=== PATIENT | female | born 1995 | race Two or more races ===

== ENCOUNTER 2023-11-24 02:39 | Emergency (ER) | payer OTHER, MEDICAID ==
[~2023-11-24] VITALS: Ht 160 cm; Wt 109.0 kg
[2023-11-24] MEDS ORDERED: PANT40TA2 PO (03:24)
[2023-11-24 03:30] VITALS: BP 138/89; PULSE 63; RESP 13; TEMP 97.9; O2SAT 97
[2023-11-24] MEDS ORDERED: DONNATAL 5ml ORAL Elix (BELLADONNA ALK-PHENOBARB) PO ONE (03:30)
[2023-11-24] MEDS ORDERED: MAALOX PLUS or MAALOX 30 ML PO ONE (03:30)
[2023-11-24] MEDS ORDERED: LIDOCAINE VISCOUS 2% 15ML UD PO ONE (03:30)
== END 2023-11-24 04:01 | disposition home or self-care (01) ==
LOC: ER 02:39
DX: K21.9 Gastro-esophageal reflux disease without esophagitis (principal); K29.00 Acute gastritis without bleeding

== ENCOUNTER 2023-11-27 08:55 | Emergency (ER) | payer OTHER, MEDICAID ==
[~2023-11-27] VITALS: Ht 160 cm; Wt 106.0 kg
[~2023-11-27 08:55] MED LIST: PANT40TA2 PO
[2023-11-27 09:27] LABS: Basophils # (auto) 0.1 10 ^3/uL (0-0.2); Basophils % (auto) 0.4 % (0.0-2.0); Eosinophils # (auto) 0 10 ^3/uL (0-0.8); Eosinophils % (auto) 0.2 % (0.0-7.0); Hemoglobin 14.4 g/dL (12.2-16.2); Lymphocytes % (auto) 15.3 % (10.0-50.0); Mean Corpuscular Hemoglobin 29.6 pg (28.0-32.0); Mean Corpuscular Hgb Conc. 33.6 g/dL (32.0-36.0); Mean Corpuscular Volume 88.2 fL (80.0-100.0); Monocytes # (auto) 0.4 10 ^3/uL (0-1.3); Monocytes % (auto) 3.1 % (0.0-12.0); Neutrophils # (auto) 10.5 10 ^3/uL (1.6-8.6); Red Blood Cells 4.88 10^6/uL (4.0-5.20); Red Cell Distribution Width 14.5 % (11.8-14.3); White Blood Cell 12.9 10^3/uL (4.4-10.8)
[2023-11-27 09:38] VITALS: BP 182/95; RESP 18; TEMP 99.1; O2SAT 100
[2023-11-27 09:39] LABS: INR 0.98 (0.9-1.15); Partial Thromboplastin Time 34.1 SEC (24.5-34.5); Prothrombin Time 10.3 sec (9.3-11.8)
[2023-11-27 09:42] LABS: Alanine Aminotransferase 24 U/L (7-40); Albumin 5.1 g/dL (3.2-4.8); Alkaline Phosphatase 110 U/L (46-116); Anion Gap 9 (5-15); Aspartate Aminotransferase 12 U/L (13-40); BUN/Creatinine Ratio 10.6 (10.0-20.0); Bilirubin, Total 0.7 mg/dL (0.2-1.0); Blood Urea Nitrogen 7 mg/dL (9-23); Calcium 10.1 mg/dL (8.5-10.1); Carbon Dioxide 25 mmol/L (20-30); Chloride 105 mmol/L (98-107); Glucose 108 mg/dL (74-106); Potassium 4.2 mmol/L (3.5-5.1); Sodium 139 mmol/L (136-145); Total Protein 7.7 g/dL (5.7-8.2)
[2023-11-27 09:53] VITALS: PULSE 56
[2023-11-27] MEDS ORDERED: KETOROLAC TROMETH 60MG/2ML VIAL IM ONE (10:45)
[2023-11-27] MEDS ORDERED: IBUP-1456 PO (11:04)
[2023-11-27] MEDS ORDERED: ZOFR4T PO (11:04)
== END 2023-11-27 11:52 | disposition home or self-care (01) ==
LOC: ER 08:55
DX: K80.20 Calculus of gallbladder without cholecystitis without obstruction (principal); K76.0 Fatty (change of) liver, not elsewhere classified; Z79.899 Other long term (current) drug therapy
CPT/HCPCS: 36415; 76705; 80053; 83690; 83735; 83880; 84484; 85025; 85610; 85730; 93005; 96372; 99285; J1885

== ENCOUNTER 2024-03-23 14:42 | Inpatient (IN) | payer MEDICAID, OTHER ==
[~2024-03-23] VITALS: Ht 160 cm; Wt 117.6 kg
[~2024-03-23 14:42] MED LIST changes: +IBUP-1456 PO; +ZOFR4T PO
[2024-03-23 15:31] LABS: Urine Amorphous Crystal FEW /hpf (None Seen); Urine Bacteria MANY /hpf (None Seen); Urine Blood Negative /uL (Negative); Urine Clarity Turbid (Clear); Urine Color Dark-Yellow (Yellow); Urine Mucus FEW (None Seen); Urine Protein, UAD 1+ (Negative); Urine Specific Gravity 1.024 (1.001-1.035); Urine Urobilinogen 2 mg/dL (Negative); Urine WBC 32 /hpf (0 - 5); Urine pH 7.5 (5.0-9.0)
[2024-03-23 15:38] LABS: Basophils # (auto) 0.1 10 ^3/uL (0-0.2); Basophils % (auto) 0.7 % (0.0-2.0); Eosinophils # (auto) 0.1 10 ^3/uL (0-0.8); Eosinophils % (auto) 1.1 % (0.0-7.0); Hematocrit 42.1 % (36.0-46.0); Lymphocytes # (auto) 1.4 10 ^3/uL (0.4-5.4); Lymphocytes % (auto) 19.1 % (10.0-50.0); Mean Corpuscular Hemoglobin 29.1 pg (28.0-32.0); Mean Corpuscular Hgb Conc. 33.2 g/dL (32.0-36.0); Mean Corpuscular Volume 87.5 fL (80.0-100.0); Monocytes # (auto) 0.4 10 ^3/uL (0-1.3); Monocytes % (auto) 5.8 % (0.0-12.0); Neutrophils # (auto) 5.6 10 ^3/uL (1.6-8.6); Neutrophils % (auto) 73.3 % (37.0-80.0); Red Blood Cells 4.81 10^6/uL (4.0-5.20); Red Cell Distribution Width 14.7 % (11.8-14.3); White Blood Cell 7.6 10^3/uL (4.4-10.8)
[2024-03-23 15:50] LABS: Alanine Aminotransferase 901 U/L (7-40); Alkaline Phosphatase 300 U/L (46-116); Anion Gap 7 (5-15); Aspartate Aminotransferase 978 U/L (13-40); BUN/Creatinine Ratio 10.9 (10.0-20.0); Bilirubin, Total 4.4 mg/dL (0.2-1.0); Blood Urea Nitrogen 7 mg/dL (9-23); Calcium 9.9 mg/dL (8.5-10.1); Carbon Dioxide 29 mmol/L (20-30); Chloride 106 mmol/L (98-107); Glucose 98 mg/dL (74-106); Sodium 142 mmol/L (136-145); Total Protein 7.7 g/dL (5.7-8.2)
[2024-03-23] MEDS ORDERED: MORPHINE SULFATE INJ 2 MG/ml SYRG IV PRN (20:30)
[2024-03-23] MEDS ORDERED: ONDANSETRON HCL 4 MG/2 ML VIAL IV PRN (20:30)
[2024-03-23 20:35] VITALS: PULSE 70; RESP 13; O2SAT 97
[2024-03-23] MEDS: PIPERACILLIN-TAZOB 3.375GM 100 ML IV ONE (20:56)
[2024-03-23] MEDS: SODIUM CHLORIDE 0.9% 1,000 ML IV SCH (21:32)
[2024-03-23 21:39] LABS: INR 1.05 (0.9-1.15); Partial Thromboplastin Time 28.6 SEC (24.5-34.5); Prothrombin Time 11.1 sec (9.3-11.8)
[2024-03-23 22:29] VITALS: BP 122/62; PULSE 58; PULSE 60; RESP 18; RESP 20; TEMP 97.9; TEMP 98; O2SAT 96; O2SAT 97
[2024-03-24 01:00] VITALS: BP_SYST 124; BP_SYST 145; BP_DIAS 67; BP_DIAS 83; PULSE 64; PULSE 84; RESP 17; RESP 18; TEMP 97.9; TEMP 98.6; O2SAT 96; O2SAT 97
[2024-03-24 05:00] VITALS: BP 131/71; PULSE 75; RESP 20; TEMP 98.8; O2SAT 94
[2024-03-24] MEDS: cefTRIAXone 1GM/50ML D5W 50 ML IV ONE (05:24)
[2024-03-24 06:19] LABS: Basophils # (auto) 0.1 10 ^3/uL (0-0.2); Basophils % (auto) 0.8 % (0.0-2.0); Eosinophils # (auto) 0.1 10 ^3/uL (0-0.8); Hematocrit 39.3 % (36.0-46.0); Hemoglobin 13.2 g/dL (12.2-16.2); Lymphocytes # (auto) 1.6 10 ^3/uL (0.4-5.4); Lymphocytes % (auto) 20.7 % (10.0-50.0); Mean Corpuscular Hemoglobin 29.5 pg (28.0-32.0); Mean Corpuscular Hgb Conc. 33.7 g/dL (32.0-36.0); Mean Corpuscular Volume 87.6 fL (80.0-100.0); Monocytes # (auto) 0.5 10 ^3/uL (0-1.3); Monocytes % (auto) 5.7 % (0.0-12.0); Neutrophils # (auto) 5.7 10 ^3/uL (1.6-8.6); Neutrophils % (auto) 71.8 % (37.0-80.0); Red Blood Cells 4.48 10^6/uL (4.0-5.20); Red Cell Distribution Width 14.8 % (11.8-14.3); White Blood Cell 7.9 10^3/uL (4.4-10.8)
[2024-03-24 06:31] LABS: Alanine Aminotransferase 825 U/L (7-40); Albumin 4.4 g/dL (3.2-4.8); Alkaline Phosphatase 314 U/L (46-116); Anion Gap 10 (5-15); Aspartate Aminotransferase 541 U/L (13-40); BUN/Creatinine Ratio 15.8 (10.0-20.0); Blood Urea Nitrogen 9 mg/dL (9-23); Calcium 9.7 mg/dL (8.7-10.4); Carbon Dioxide 24 mmol/L (20-30); Chloride 109 mmol/L (98-107); Glucose 83 mg/dL (74-106); Potassium 3.7 mmol/L (3.5-5.1); Sodium 143 mmol/L (136-145)
[2024-03-24 06:32] LABS: Bilirubin, Total 4.6 mg/dL (0.2-1.0)
[2024-03-24 08:35] VITALS: BP 128/75; PULSE 65; RESP 16; TEMP 97.8; O2SAT 95
[2024-03-24] MEDS ORDERED: HYDROcodone-ACET 5/325MG TAB PO PRN (11:45)
[2024-03-24 12:34] VITALS: BP 129/66; PULSE 61; RESP 16; TEMP 98.1; O2SAT 95
[2024-03-24] MEDS: metroNIDAZOLE 500MG/100ML 100 ML IV SCH (15:03)
[2024-03-24 17:00] VITALS: BP 126/73; PULSE 67; RESP 16; TEMP 98; O2SAT 96
[2024-03-24 21:31] VITALS: BP 115/64; PULSE 88; RESP 18; TEMP 98.3; O2SAT 97
[2024-03-25] VITALS (7 sets, daily range): BP systolic 117–144; BP diastolic 58–94; PULSE 53–84; RESP 16–18; TEMP 97.6–98.6; O2SAT 95–97
[2024-03-25] MEDS: cefTRIAXone 1GM/50ML D5W 50 ML IV SCH (04:01)
[2024-03-25 06:12] LABS: Basophils # (auto) 0 10 ^3/uL (0-0.2); Basophils % (auto) 0.7 % (0.0-2.0); Eosinophils # (auto) 0.1 10 ^3/uL (0-0.8); Eosinophils % (auto) 1.8 % (0.0-7.0); Hematocrit 39.2 % (36.0-46.0); Hemoglobin 13.1 g/dL (12.2-16.2); Lymphocytes # (auto) 1.9 10 ^3/uL (0.4-5.4); Lymphocytes % (auto) 29.4 % (10.0-50.0); Mean Corpuscular Hemoglobin 29.4 pg (28.0-32.0); Mean Corpuscular Hgb Conc. 33.4 g/dL (32.0-36.0); Monocytes # (auto) 0.5 10 ^3/uL (0-1.3); Neutrophils % (auto) 61.1 % (37.0-80.0); Red Blood Cells 4.46 10^6/uL (4.0-5.20); Red Cell Distribution Width 15.2 % (11.8-14.3); White Blood Cell 6.5 10^3/uL (4.4-10.8)
[2024-03-25 06:27] LABS: INR 1.07 (0.9-1.15); Partial Thromboplastin Time 31.5 SEC (24.5-34.5); Prothrombin Time 11.3 sec (9.3-11.8)
[2024-03-25 06:39] LABS: Alanine Aminotransferase 564 U/L (7-40); Albumin 3.9 g/dL (3.2-4.8); Alkaline Phosphatase 327 U/L (46-116); Anion Gap 10 (5-15); Aspartate Aminotransferase 288 U/L (13-40); BUN/Creatinine Ratio 10.7 (10.0-20.0); Bilirubin, Total 4.2 mg/dL (0.2-1.0); Blood Urea Nitrogen 6 mg/dL (9-23); Carbon Dioxide 23 mmol/L (20-30); Chloride 107 mmol/L (98-107); Glucose 90 mg/dL (74-106); Potassium 3.8 mmol/L (3.5-5.1); Sodium 140 mmol/L (136-145); Total Protein 6.3 g/dL (5.7-8.2)
[2024-03-25] MEDS: LORATADINE 10 MG TAB PO SCH (17:45)
[2024-03-25] MEDS: diphenhdrAMINE HCL 25 MG CAP PO PRN (21:50)
[2024-03-26 01:00] VITALS: BP 134/74; PULSE 58; RESP 18; TEMP 97.9; O2SAT 98
[2024-03-26 05:00] VITALS: BP 127/71; PULSE 51; RESP 16; TEMP 98.4; O2SAT 97
[2024-03-26 06:55] LABS: Alanine Aminotransferase 533 U/L (7-40); Albumin 4.1 g/dL (3.2-4.8); Alkaline Phosphatase 382 U/L (46-116); Anion Gap 7 (5-15); Aspartate Aminotransferase 246 U/L (13-40); Bilirubin, Total 4.7 mg/dL (0.2-1.0); Calcium 9.4 mg/dL (8.5-10.1); Carbon Dioxide 23 mmol/L (20-30); Chloride 110 mmol/L (98-107); Glucose 91 mg/dL (74-106); Potassium 3.8 mmol/L (3.5-5.1); Sodium 140 mmol/L (136-145); Total Protein 6.5 g/dL (5.7-8.2)
[2024-03-26 06:56] LABS: BUN/Creatinine Ratio 9.6 (10.0-20.0); Blood Urea Nitrogen < 5 mg/dL (9-23)
[2024-03-26 07:02] LABS: Basophils # (auto) 0.1 10 ^3/uL (0-0.2); Basophils % (auto) 0.9 % (0.0-2.0); Eosinophils # (auto) 0.2 10 ^3/uL (0-0.8); Eosinophils % (auto) 2.9 % (0.0-7.0); Hematocrit 41.2 % (36.0-46.0); Hemoglobin 13.5 g/dL (12.2-16.2); Lymphocytes # (auto) 2.2 10 ^3/uL (0.4-5.4); Lymphocytes % (auto) 33.5 % (10.0-50.0); Mean Corpuscular Hemoglobin 29.4 pg (28.0-32.0); Mean Corpuscular Hgb Conc. 32.8 g/dL (32.0-36.0); Mean Corpuscular Volume 89.7 fL (80.0-100.0); Monocytes # (auto) 0.5 10 ^3/uL (0-1.3); Monocytes % (auto) 7.6 % (0.0-12.0); Neutrophils # (auto) 3.6 10 ^3/uL (1.6-8.6); Neutrophils % (auto) 55.1 % (37.0-80.0); Nucleated Red Blood Cells % 0.1 %; Red Cell Distribution Width 15.2 % (11.8-14.3); White Blood Cell 6.5 10^3/uL (4.4-10.8)
[2024-03-26 09:00] VITALS: BP 131/58; PULSE 66; RESP 18; TEMP 97.9; O2SAT 95
[2024-03-26 13:00] VITALS: BP 128/77; PULSE 78; RESP 16; TEMP 97.7; O2SAT 96
[2024-03-26 17:00] VITALS: BP 129/83; PULSE 72; RESP 18; TEMP 98.3; O2SAT 96
[2024-03-26 21:00] VITALS: BP 149/88; PULSE 67; RESP 17; TEMP 98; O2SAT 98
[2024-03-27] VITALS (7 sets, daily range): BP systolic 104–144; BP diastolic 57–84; PULSE 69–90; RESP 14–18; TEMP 97.7–98.2; O2SAT 95–99
[2024-03-27 07:10] LABS: Alanine Aminotransferase 517 U/L (7-40); Albumin 4.1 g/dL (3.2-4.8); Alkaline Phosphatase 418 U/L (46-116); Anion Gap 9 (5-15); Aspartate Aminotransferase 287 U/L (13-40); Calcium 9.5 mg/dL (8.7-10.4); Carbon Dioxide 24 mmol/L (20-30); Chloride 107 mmol/L (98-107); Glucose 83 mg/dL (74-106); Potassium 3.7 mmol/L (3.5-5.1); Sodium 140 mmol/L (136-145)
[2024-03-27 07:11] LABS: Bilirubin, Total 5.4 mg/dL (0.2-1.0); Total Protein 6.7 g/dL (5.7-8.2)
[2024-03-27 07:13] LABS: BUN/Creatinine Ratio 8.2 (10.0-20.0); Blood Urea Nitrogen < 5 mg/dL (9-23)
[2024-03-27] MEDS: metroNIDAZOLE 500 MG TAB PO SCH (14:58)
[2024-03-28] VITALS (7 sets, daily range): BP systolic 130–143; BP diastolic 75–89; PULSE 63–83; RESP 17–20; TEMP 97.8–98.5; O2SAT 95–99
[2024-03-28 06:41] LABS: Alanine Aminotransferase 522 U/L (7-40); Albumin 4.1 g/dL (3.2-4.8); Alkaline Phosphatase 441 U/L (46-116); Anion Gap 8 (5-15); Aspartate Aminotransferase 321 U/L (13-40); BUN/Creatinine Ratio 8.8 (10.0-20.0); Bilirubin, Total 5.4 mg/dL (0.2-1.0); Blood Urea Nitrogen < 5 mg/dL (9-23); Calcium 9.6 mg/dL (8.7-10.4); Carbon Dioxide 23 mmol/L (20-30); Chloride 108 mmol/L (98-107); Glucose 90 mg/dL (74-106); Potassium 3.7 mmol/L (3.5-5.1); Sodium 139 mmol/L (136-145); Total Protein 6.5 g/dL (5.7-8.2)
[2024-03-28 10:21] LABS: Hepatitis B Core Total AB Negative (Negative)
[2024-03-28 10:46] LABS: Hepatitis A Ab IgM Negative; Hepatitis A Total Antibody Negative (Negative); Hepatitis B Core IgM Negative; Hepatitis B Surface Antibody Negative (Negative); Hepatitis B Surface Antigen Negative (Negative); Hepatitis C Antibody Negative (Negative)
[2024-03-29] VITALS (7 sets, daily range): BP systolic 115–135; BP diastolic 56–85; PULSE 67–83; RESP 19–20; TEMP 97.9–98.6; O2SAT 93–98
[2024-03-29 05:56] LABS: Basophils # (auto) 0.1 10 ^3/uL (0-0.2); Basophils % (auto) 0.9 % (0.0-2.0); Eosinophils # (auto) 0.1 10 ^3/uL (0-0.8); Eosinophils % (auto) 2.2 % (0.0-7.0); Hematocrit 40.8 % (36.0-46.0); Hemoglobin 13.5 g/dL (12.2-16.2); Lymphocytes # (auto) 2.6 10 ^3/uL (0.4-5.4); Lymphocytes % (auto) 40.2 % (10.0-50.0); Mean Corpuscular Hemoglobin 29.3 pg (28.0-32.0); Mean Corpuscular Hgb Conc. 33.2 g/dL (32.0-36.0); Mean Corpuscular Volume 88.4 fL (80.0-100.0); Monocytes # (auto) 0.4 10 ^3/uL (0-1.3); Monocytes % (auto) 6.6 % (0.0-12.0); Neutrophils # (auto) 3.2 10 ^3/uL (1.6-8.6); Neutrophils % (auto) 50.1 % (37.0-80.0); Red Blood Cells 4.61 10^6/uL (4.0-5.20); Red Cell Distribution Width 16.2 % (11.8-14.3); White Blood Cell 6.4 10^3/uL (4.4-10.8)
[2024-03-29 06:21] LABS: Alanine Aminotransferase 497 U/L (7-40); Albumin 3.9 g/dL (3.2-4.8); Alkaline Phosphatase 440 U/L (46-116); Anion Gap 7 (5-15); Aspartate Aminotransferase 313 U/L (13-40); BUN/Creatinine Ratio 9.3 (10.0-20.0); Blood Urea Nitrogen 5 mg/dL (9-23); Calcium 9.4 mg/dL (8.7-10.4); Carbon Dioxide 23 mmol/L (20-30); Chloride 110 mmol/L (98-107); Glucose 119 mg/dL (74-106); Potassium 3.8 mmol/L (3.5-5.1); Sodium 140 mmol/L (136-145)
[2024-03-29 06:22] LABS: Bilirubin, Total 4.9 mg/dL (0.2-1.0); Total Protein 6.2 g/dL (5.7-8.2)
[2024-03-30] VITALS (8 sets, daily range): BP systolic 107–138; BP diastolic 55–85; PULSE 63–90; RESP 16–19; TEMP 97.6–98; O2SAT 95–98
[2024-03-30 07:12] LABS: Alanine Aminotransferase 456 U/L (7-40); Albumin 3.8 g/dL (3.2-4.8); Alkaline Phosphatase 443 U/L (46-116); Anion Gap 7 (5-15); Aspartate Aminotransferase 245 U/L (13-40); Calcium 9.4 mg/dL (8.7-10.4); Carbon Dioxide 23 mmol/L (20-30); Chloride 110 mmol/L (98-107); Potassium 3.6 mmol/L (3.5-5.1); Sodium 140 mmol/L (136-145)
[2024-03-30 07:13] LABS: BUN/Creatinine Ratio 11.5 (10.0-20.0); Blood Urea Nitrogen 6 mg/dL (9-23); Glucose 106 mg/dL (74-106)
[2024-03-30 07:15] LABS: Bilirubin, Total 4.4 mg/dL (0.2-1.0); Total Protein 6.1 g/dL (5.7-8.2)
[2024-03-30 11:07] LABS: Anti-Centromere B Antibody <0.2 AI (0.0-0.9); Anti-Jo-1 Antibody <0.2 AI (0.0-0.9); Anti-dsDNA Antibody 1 IU/mL (0-9); Antichromatin Antibody <0.2 AI (0.0-0.9); Antiscleroderma-70 Antibody <0.2 AI (0.0-0.9); RNP Antibody <0.2 AI (0.0-0.9); Sjogren's Anti-SS-A Antibody <0.2 AI (0.0-0.9); Sjogren's Anti-SS-B Antibody <0.2 AI (0.0-0.9); Smith Antibody <0.2 AI (0.0-0.9)
[2024-03-31 01:00] VITALS: BP 106/52; PULSE 60; RESP 18; TEMP 98.2; O2SAT 95
[2024-03-31 05:00] VITALS: BP 106/64; PULSE 66; RESP 16; TEMP 98; O2SAT 96
[2024-03-31 06:51] LABS: Basophils # (auto) 0.1 10 ^3/uL (0-0.2); Basophils % (auto) 1.1 % (0.0-2.0); Eosinophils # (auto) 0.1 10 ^3/uL (0-0.8); Eosinophils % (auto) 1.7 % (0.0-7.0); Hematocrit 39.9 % (36.0-46.0); Hemoglobin 13.1 g/dL (12.2-16.2); Lymphocytes # (auto) 2.7 10 ^3/uL (0.4-5.4); Lymphocytes % (auto) 38.4 % (10.0-50.0); Mean Corpuscular Hemoglobin 29.1 pg (28.0-32.0); Mean Corpuscular Hgb Conc. 32.8 g/dL (32.0-36.0); Mean Corpuscular Volume 88.6 fL (80.0-100.0); Monocytes # (auto) 0.3 10 ^3/uL (0-1.3); Monocytes % (auto) 4.8 % (0.0-12.0); Neutrophils # (auto) 3.7 10 ^3/uL (1.6-8.6); Nucleated Red Blood Cells % 0.1 %; Red Cell Distribution Width 16.9 % (11.8-14.3); White Blood Cell 6.9 10^3/uL (4.4-10.8)
[2024-03-31 07:19] LABS: Alanine Aminotransferase 401 U/L (7-40); Alkaline Phosphatase 473 U/L (46-116); Anion Gap 6 (5-15); BUN/Creatinine Ratio 11.8 (10.0-20.0); Blood Urea Nitrogen 6 mg/dL (9-23); Calcium 9.5 mg/dL (8.5-10.1); Carbon Dioxide 24 mmol/L (20-30); Chloride 109 mmol/L (98-107); Glucose 98 mg/dL (74-106); Potassium 3.9 mmol/L (3.5-5.1); Sodium 139 mmol/L (136-145)
[2024-03-31 07:20] LABS: Albumin 3.8 g/dL (3.2-4.8); Aspartate Aminotransferase 183 U/L (13-40)
[2024-03-31 07:21] LABS: Bilirubin, Total 3.3 mg/dL (0.2-1.0); Total Protein 6.3 g/dL (5.7-8.2)
[2024-03-31 09:00] VITALS: BP 103/55; PULSE 53; RESP 16; TEMP 97.9; O2SAT 97
[2024-03-31] MEDS: LIDOCAINE W/ EPINEPHRINE 1% 20ML VIAL ONE (09:51)
[2024-03-31] MEDS: BUPIVACAINE HCL 0.25% P/F 10 ML VIAL ONE (09:51)
[2024-03-31] MEDS ORDERED: PANT40TA2 PO (11:45)
[2024-03-31] MEDS ORDERED: CEPH500C PO (11:45)
== END 2024-03-31 13:20 | disposition home or self-care (01) ==
LOC: ER 14:42 → OVERFLOW 20:25 → EAST 20:25
PROVIDERS: ADMIT Nurse Practitioner; ATTEND Internal Medicine
DX: K80.00 Calculus of gallbladder with acute cholecystitis without obstruction (principal); K72.00 Acute and subacute hepatic failure without coma; N39.0 Urinary tract infection, site not specified; E66.01 Morbid (severe) obesity due to excess calories; E80.6 Other disorders of bilirubin metabolism; Z68.42 Body mass index [BMI] 45.0-49.9, adult; Z79.899 Other long term (current) drug therapy
CPT/HCPCS: 36415; 74176; 74181; 76705; 80053; 80074; 81001; 81025; 82728; 83516; 83690; 84484; 84702; 85025; 85610; 85730; 86038; 86225; 86235; 86704; 86706; 86708; 86803; 86850; 86900; 86901; 87340; 96365; G0378; J2543; J3490